=== PATIENT | male | born 1955 | race Caucasian/White ===

== ENCOUNTER 2017-11-15 12:10 | Inpatient (IN) | payer MEDICARE, OTHER ==
[~2017-11-15] VITALS: Ht 25.4 cm; Wt 93.0 kg
[~2017-11-15 12:10] MED LIST: ACIDOPHILUS1 EAC4 PO; AMBIEN 10 MG TA10 MG PO; AMLODIPINE BESY10 MG PO; ASPIR 8181 MG PO; ATORVASTATIN CA40 MG PO; CIPRO500 MG PO; HYDROCODON-ACE1 EACH PO; IRON325 PO; LIORESAL 10 MG10 MG INJECTION; LIPITOR20 MG PO; LISINOPRIL10 MG PO; METOCLOPRAMIDE10 MG PO; MSL20MG/ML PO; OMEPRAZOLE20 M2 PO; ONDANSETRON HCL4 M2 PO; PAXIL20 MG PO; POTASSIUM20 PO; VANCO1GM PO; VITAMIN B-1100 M1 PO; VITAMIN B-12500 MCG PO; WELLBUTRIN SR150 MG PO; ZOFRAN ODT4 MG PO
[2017-11-15 12:18] VITALS: BP 171/57
[2017-11-15 13:12] LABS: MCH 23.2 pg (26.0-34.0); MCHC 31.2 g/dL (28.0-37.0); MCV 74.3 fL (80.0-100.0); MPV 7.2 fl. (7.2-11.1); NUCLEATED RBCS 0 /100WBC; PLATELET COUNT* 354 thou/uL (150-400); RBC 4.31 mil/uL (4.50-6.00); RDW-CV 15.7 % (10.5-14.5); WBC 10.3 thou/uL (4.0-11.0)
[2017-11-15 13:19] LABS: CALCIUM 8.7 mg/dL (8.5-10.1); CREATININE 0.9 mg/dL (0.6-1.3)
[2017-11-15 13:20] LABS: POTASSIUM 2.9 mmol/L (3.5-5.1)
[2017-11-15 13:23] LABS: ALBUMIN 2.8 g/dL (3.4-5.0); TOTAL BILIRUBIN 0.2 mg/dL (<0.1-1.0); TOTAL PROTEIN 7.4 g/dL (6.4-8.2)
[2017-11-15 13:32] LABS: ABSOLUTE EOSINOPHILS 0.1 thou/uL (0.0-0.7); ABSOLUTE LYMPHOCYTES 0.6 thou/uL (0.8-5.3); ABSOLUTE MONOCYTES 0.5 thou/uL (0.0-1.2); ABSOLUTE NEUTROPHILS 9.1 thou/uL (1.6-8.1); ANISOCYTOSIS 1+; PLATELET ESTIMATE ADEQUATE; POIKILOCYTOSIS 1+
[2017-11-15 13:33] LABS: MICROCYTES 1+
--- NOTE | 2017-11-15 14:53 | NUR ---
PT RETURNED FROM CT BY CART AT THIS TIME.
--- NOTE | 2017-11-15 15:00 | NUR ---
SLIGHT BRUISING UNDER RT BREAST AREA. NO SWELLING. LUNG SOUNDS DIMINISHED IN RT MIDDLE AND LOWER LOBES. MORPHINE PAIN PUMP IN PLACE IN LT LOWER BACK.
[2017-11-15 15:43] LABS: TROPONIN-I LEVEL <0.06 ng/mL (<0.06)
[2017-11-15 16:17] LABS: URINE BILIRUBIN NEGATIVE (Negative); URINE BLOOD NEGATIVE (Negative); URINE CLARITY CLEAR; URINE COLOR YELLOW; URINE GLUCOSE-RANDOM NEGATIVE (Negative); URINE KETONES NEGATIVE (Negative); URINE LEUKOCYTES-REFLEX NEGATIVE (Negative); URINE NITRITE-REFLEX NEGATIVE (Negative); URINE PROTEIN NEGATIVE (Negative); URINE SPECIFIC GRAVITY 1.015 (1.005-1.030); URINE UROBILINOGEN 0.2 E.U./dl (0.2-1.0)
[2017-11-15 16:24] LABS: AMP/METHAMP Negative (Negative); BARBITURATES Negative (Negative); BENZODIAZEPINES POSITIVE (Negative); COCAINE Negative (Negative); METHADONE Negative (Negative); OPIATES POSITIVE (Negative); PCP Negative (Negative); THC Negative (Negative)
--- NOTE | 2017-11-15 16:37 | EKG ---
[place] [address] ELECTROCARDIOGRAM REPORT Name: GIANCARLO JACOBS Room: [place] [address] ADM IN .R.#: [id number] Admission: 11/15/17 Attend Phys: Reanna Mayen Discharge: Date of : 57 Report #: [id number] THIS REPORT FOR: //name// [facility] ED Test Date: 2017-11-15 Test Time: 12:55:58 Pat Name: GIANCARLO JACOBS Department: Room: [facility] Gender: M Credit Director: Jessi KAHN : 1955 Requested By: Sabra Oliver Order Number: [id number] MD: Israel Mascorro Measurements Intervals [place] Rate: 88 P: 31 IA: 142 QRS: -68 QRSD: 118 T: 25 QT: 393 QTc: 476 Interpretive Statements Sinus rhythm Supraventricular bigeminy Left anterior fascicular block Probable left ventricular hypertrophy Baseline wander in lead(s) V6 Compared to ECG 06/05/2017 08:13:56 Atrial premature complex(es) now present ST (T wave) deviation now present Sinus tachycardia no longer present Right bundle-branch block no longer present Electronically Signed On 11-15-2017 16:37:07 [employer] by Israel Mascorro [email or web address] <ELECTRONICALLY SIGNED> By: Israel Mascorro MD, FAC 11/15/17 1637 1255 1255 Israel Mascorro MD, [facility] /EPI
[2017-11-15 16:55] VITALS: BP 117/57
--- NOTE | 2017-11-15 17:05 | NUR ---
PT ARRIVED ON THE FLOOR FROM ER DEPT. REPORT TAKEN FROM AMINA CARNEY. PT ON CARDIAC MONITER TRACING ST WITH PVC HR 101. PT IS A&O. PT IS AFEBRILE. PT ON FALL PRECAUTIONS PER FACILITY PROTOCOL. HE IS ON 4L OF 02 WITH DIMINISHED L LOBES. PT IS COMFORTABLE IN BED AND EATING DINNER. NS AT 100 PER HOUR STARTED PER ORDERS.
[2017-11-15 17:15] VITALS: BP 161/63
[2017-11-15] MEDS ORDERED: PAXIL10 MG PO (17:35)
--- NOTE | 2017-11-15 18:32 | NUR ---
DR TIJERINA IN TO SEE PT TO ADDRESS PAIN AND EDEMA.
[2017-11-16] VITALS: BP 118/51
[2017-11-16 04:00] VITALS: BP 103/47
[2017-11-16 05:53] LABS: CALCIUM 8.2 mg/dL (8.5-10.1); CREATININE 0.7 mg/dL (0.6-1.3); MAGNESIUM 1.9 mg/dL (1.8-2.4); POTASSIUM 3.1 mmol/L (3.5-5.1)
--- NOTE | 2017-11-16 06:51 | NUR ---
A&O X4 CALM COOPERITIVE. FLUIDS AT 100ML. PT IS UP X1 ASSIST. K+ 3.1 PROTOCOL STARTED. RA. PT HAS RIGHT SIDE PAIN. GIVEN MEDICATION WITH PARTIAL RELIEF. SR ON THE MONITOR. VITALS WNL. FALL PRECAUTIONS IN PLACE. HOURLY ROUNDING FOR SAFETY.
[2017-11-16 07:20] VITALS: BP 108/34
--- NOTE | 2017-11-16 08:44 | NUR ---
RECEIVED PT CARE 0700. PT IS ALERT AND ORIENTED X4. VSS. COUNT ROOM CLERK TRACING SR. PATIENT DENIES ANY SOA. O2 SAT 95% ON ROOM AIR. C/O RIGHT SIDE RIB PAIN. RATES 7/10. PRN PAIN MEDICATION GIVEN WITH GOOD RELIEF. AM ASSESSMENT CHARTED. MEDS PER MAR. PT UP STANDBY ASSIST IN ROOM WITH BATHROOM PRIVILEDGES. GAIT IS STEADY. IVF INFUSING. PATIENT UP IN THE CHAIR FOR BREAKFAST. CALL LIGHT WITHIN REACH AND REMINDED PATIENT TO CALL OUT FOR NEEDS/WANTS.
[2017-11-16 08:56] LABS: HEMATOCRIT 28.1 % (42.0-52.0); MCH 23.3 pg (26.0-34.0); MCHC 32.1 g/dL (28.0-37.0); MCV 72.6 fL (80.0-100.0); RBC 3.87 mil/uL (4.50-6.00); RDW-CV 15.8 % (10.5-14.5); WBC 7.7 thou/uL (4.0-11.0)
[2017-11-16 11:47] VITALS: BP 97/44
[2017-11-16 12:02] LABS: % SATURATION 6 % (20-39); IRON 20 ug/dL (50-175)
--- NOTE | 2017-11-16 14:09 | 2DMMODE ---
[place] [address] 2 D/M-MODE ECHOCARDIOGRAM Name: GIANCARLO JACOBS Room: [address] IN [facility]#: [id number] Admission: 11/15/17 Attend Phys: Malina Maciel Discharge: Date of : 57 Date of Service: 11/16/17 1409 Report #: [id number] THIS REPORT FOR: //name// APPROVED REPORT Study performed: 11/16/2017 09:27:06 EXAM: Comprehensive 2D, Doppler, and color-flow Echocardiogram Patient Location: In-Patient Room #: [facility] Status: routine BSA: 2.13 HR: 83 bpm BP: 108/34 mmHg Rhythm: NSR Other Information Study Quality: Good Indications Dyspnea rib fractures 2D Dimensions LVEF(%): 77.13 (>50%) IVSd: 13.36 (7-11mm) LVOT Diam: 23.58 (18-24mm) LVDd: 50.47 mm PWd: 11.87 (7-11mm) Ascending Ao: 31.70 (22-36mm) LVDs: 27.25 (25-40mm) Aortic Root: 34.49 mm Heath's LVEF: 77.13 % Volumes Left Atrial Volume (Systole) LA ESV Index: 37.30 mL/m2 Aortic Valve AoV Peak Pierce.: 1.88 m/s AO Peak Gr.: 14.17 mmHg LVOT Max P.10 mmHg AO Mean Gr.: 8.41 mmHg LVOT Mean P.54 mmHg LVOT Max V: 1.13 m/s AO V2 VTI: 33.51 cm LVOT Mean V: 0.73 m/s DELMY (VTI): 3.15 cm2 LVOT V1 VTI: 24.17 [place] [address] 2 D/M-MODE ECHOCARDIOGRAM Name: GIANCARLO JACOBS Room: [address] IN .R.#: [id number] Admission: 11/15/17 Attend Phys: Malina Maciel Discharge: Date of : 57 Date of Service: 11/16/17 1409 Report #: [id number] E/A Ratio: 1.20 MV Decel. Time: 192.69 ms MV E Max Pierce.: 0.80 m/s MV PHT: 55.88 ms MVA (PHT): 3.94 cm2 TDI E/Lateral E': 6.15 E/Medial E': 7.27 Medial E' Pierce.: 0.11 m/s Lateral E' Pierce.: 0.13 m/s Pulmonary Valve PV Peak Pierce.: 1.13 m/s PV Peak Gr.: 5.14 mmHg Tricuspid Valve TR Peak Gr.: 31.06 mmHg RVSP: 36.00 mmHg Left Ventricle The left ventricle is normal size. There is normal LV segmental wall motion. Mild concentric left ventricular hypertrophy.. Left ventricular systolic function is normal. The left ventricular ejection fraction is within the normal range. LVEF is 60-65%. The left ventricular diastolic function is normal. Right Ventricle The right ventricle is normal size. The right ventricular systolic function is normal. Atria Left atrium is mildly dilated. The right atrium size is normal. Aortic Valve Mild aortic valve sclerosis. No aortic regurgitation is present. There is no aortic valvular stenosis. Mitral Valve The mitral valve is normal in structure. Trace mitral regurgitation. No evidence of mitral valve stenosis. Tricuspid Valve The tricuspid valve is normal in structure. Trace tricuspid regurgitation. The RVSP is 35-40 mmHg. Pulmonic Valve The pulmonary valve is normal in structure. [place] [address] 2 D/M-MODE ECHOCARDIOGRAM Name: GIANCARLO JACOBS Room: [address] IN [facility]#: [id number] Admission: 11/15/17 Attend Phys: Malina Maciel Discharge: Date of : 57 Date of Service: 11/16/17 1409 Report #: [id number] valvular regurgitation. Great Vessels The aortic root is normal in size. IVC is normal in size and collapses with >50% inspiration Pericardium There is no pericardial effusion. <Conclusion> LVEF is 60-65%. Mild concentric left ventricular hypertrophy.. Left atrium is mildly dilated. <ELECTRONICALLY SIGNED> By: Gurpreet Brody MD, FACC 11/16/17 1409 140 140 Gurpreet Brody MD, FACC /INF
[2017-11-16 16:01] VITALS: BP 110/49
--- NOTE | 2017-11-16 18:10 | NUR ---
PT PROGRESSING TOWARDS GOALS. PAIN CONTROLLED WITH PRN PAIN MEDICATIONS. HE IS TOLERATED HIS DIET WELL WITHOUT NAUSEA OR VOMITING. UP STANDBY ASSIST IN ROOM. GAIT STEADY. VOIDING PER URINAL AND AMBULATING TO RESTROOM. IV SALINE LOCKED. PATIENT ANXIOUS TO DC HOME. HE WAS UPDATED ON PLAN OF CARE AND TEST RESULTS. BED ALARM ON. HOURLY ROUNDING CHARTED. CALL LIGHT WITHIN REACH. WILL CONTINUE TO MONITOR.
[2017-11-16 18:11] LABS: IgA 201 mg/dL (61-437); IgG 815 mg/dL (700-1600); IgM 123 mg/dL (20-172)
[2017-11-16 20:08] VITALS: BP 121/54
[2017-11-17 00:03] VITALS: BP 118/61
[2017-11-17 04:18] VITALS: BP 110/48
--- NOTE | 2017-11-17 05:34 | NUR ---
PT IS ABLE TO COMMUNICATE HIS NEEDS TO STAFF EFFECTIVELY. CURRENT PAIN MEDICATION REGIMEN HAS BEEN ADEQUATE FOR CONTROLLING HIS PAIN UP TO THIS TIME. POSSIBLE DISCHARGE LATER TODAY.
--- NOTE | 2017-11-17 08:00 | NUR ---
PT RESSYING IN BED, APPEARS ALERT O X 4, DENIES CHEST PAIN, SOB, C/O r CHEST SORENESS/RIB PAIN. STATES ADEQ PAIN CONTROL AT THIS TIME,. RATES PAIN 2-3 ON SCALE OF 1-10
[2017-11-17 08:40] VITALS: BP 117/59
[2017-11-17 12:00] VITALS: BP 127/53
--- NOTE | 2017-11-17 15:25 | NUR ---
CM SPOKE TO THE PATIENT TO DISCUSS HOME SITUATION, DISCHARGE PLANNING, AND TO INFORM OF THE ROLE OF CM. PATIENT ALERT AND ORIENTED. PATIENT RESIDES AT HOME WITH SPOUSE AND SON. PATIENT USES 0 DME. PATIENT HAS NO HX OF SNF. PATIENT HAS A HX OF HH WITH [facility], AND IS OPEN TO HH AT D/C. PATIENT PLANS TO RETURN HOME AT D/C. PATIENT REQUEST A WALKER AT D/C. CM WILL REMAIN AVAILABLE TO ASSIST AND FOLLOW NEEDED.
[2017-11-17 16:00] VITALS: BP 145/57
--- NOTE | 2017-11-17 18:21 | NUR ---
pt progressing towards goals, remains o x 4, forgetful, has been up tp batroom with standby assist, particiaoted with physical theapy. No reports or c/o feeling orthostatic. Had pt count to 30 with each change of position when getting up. Seeme dto do well ..........fair appetite. C/O r rib pain, Taking hydrocodome q-3-4 hour. Spoke to spouse today. She expressed concers anout poor memory. Staes fanily consideribf placing in in assisted living secondary to his forgetfullness
[2017-11-17 20:57] VITALS: BP 129/52
[2017-11-18 00:02] VITALS: BP 133/64
[2017-11-18 04:10] VITALS: BP 138/62
--- NOTE | 2017-11-18 07:51 | NUR ---
PT IS ABLE TO COMMUNICATE HIS NEEDS TO STAFF EFFECTIVELY. CURRENT PAIN MEDICATION REGIMEN HAS BEEN ADEQUATE FOR CONTROLLING HIS PAIN UP TO THIS TIME. PT TO HAVE COSYNTROPIN STIMULATION LAB TEST LATER TODAY. POSSIBLE DISCHARGE TODAY OR TOMORROW.
[2017-11-18 12:00] VITALS: BP 125/53
[2017-11-18 16:00] VITALS: BP 121/62
--- NOTE | 2017-11-18 17:54 | NUR ---
PATIENT RESTING IN BED. UP IN ROOM AD VILLA AND IN NO APPARENT DISTRESS AT THIS TIME. RICKIE HAS IMPLANTED PAIN PUMP AND RECEIVES PO MEDICATION Q3H TO MAINTIN RIB PAIN AT LESS THAN 4 ON 0-10 PAIN SCALE. VITAL SIGNS STABLE. SINUS RHYTHM ON MONITOR. HOULRY ROUNDING COMPLETED FOR PATIENT SAFETY.
[2017-11-18 20:57] VITALS: BP 118/60
[2017-11-18 23:50] VITALS: BP 111/61
[2017-11-19 04:00] VITALS: BP 116/56
[2017-11-19 09:09] LABS: CORTISOL 30 MIN 16.7 ug/dL (Not Estab.); CORTISOL 60 MIN 18.2 ug/dL (Not Estab.); CORTISOL BASELINE 7.4 ug/dL (())
--- NOTE | 2017-11-19 10:11 | NUR ---
ORDER RECEIVED FOR "OT EVALUATION AND TREATMENT". READ CHART AND SPOKE WITH RN AND PATIENT. PT STATING THAT HE TOOK A SHOWER I THIS AM AND IS UP AD VILLA. PT WITH NO NEED FOR SKILLED OT SERVICES AT THIS TIME AND WILL D/C FROM [facility].
--- NOTE | 2017-11-19 11:18 | NUR ---
Pt now declining wanting a walker for home, states that his has one that he plans to use.
[2017-11-19 11:37] VITALS: BP 131/60
[2017-11-19 13:08] LABS: ANA INTERPRETATION Negative (Negative)
--- NOTE | 2017-11-19 14:39 | NUR ---
ORDER RECEIVED FOR "OT EVAL AND TREAT" AND SEEN THIS DATE AT 1011. OT HAD REVIEWED CHART, AND SPOKEN WITH RN AND PATIENT. BOTH RN AND PATIENT STATING THAT HE HAD TAKEN A SHOWER INDEPENDENTLY AND DID NOT SEE NEED FOR OCCUPATIONAL THERAPY. SECOND ORDER RECEIVED AT 1349 ON THIS DATE. PLAN TO DEFER TO PHYSICAL THERAPY AT THIS TIME.
[2017-11-19 15:53] VITALS: BP 135/72
[2017-11-19] MEDS ORDERED: LEVAQUIN 750 M750 MG PO (16:03)
[2017-11-19] MEDS ORDERED: CORTEF 20 MG TA20 M1 PO (16:04)
[2017-11-19] MEDS ORDERED: LIDOPATCH1 EACH TOP (16:05)
[2017-11-19] MEDS ORDERED: ZOFRAN ODT4 MG PO (16:08)
[2017-11-19 16:46] VITALS: BP 135/72
[2017-11-19 16:59] VITALS: BP 135/72
== END 2017-11-19 18:00 | disposition home or self-care (01) | DRG 183 ==
LOC: M.ERS 12:10 → M.TBA-ER 16:08 → M.2W 16:08
PROVIDERS: Internal Medicine; Nurse Practitioner Family; ADMIT Internal Medicine
DX: S22.41XA Multiple fractures of ribs, right side, initial encounter for closed fracture (principal); J15.9 Unspecified bacterial pneumonia; J96.01 Acute respiratory failure with hypoxia; I48.91 Unspecified atrial fibrillation; G89.29 Other chronic pain; M54.9 Dorsalgia, unspecified; K59.09 Other constipation; E87.6 Hypokalemia; W18.39XA Other fall on same level, initial encounter; Y93.89 Activity, other specified; Y92.89 Other specified places as the place of occurrence of the external cause; Y99.8 Other external cause status

== ENCOUNTER 2017-12-14 02:56 | Inpatient (IN) | payer MEDICARE, OTHER ==
[~2017-12-14] VITALS: Ht 177.8 cm; Wt 98.9 kg
[2017-12-14] VITALS (7 sets, daily range): BP systolic 105–148; BP diastolic 46–79
[~2017-12-14 02:56] MED LIST changes: +CORTEF 20 MG TA20 M1 PO; +LEVAQUIN 750 M750 MG PO; +LIDOPATCH1 EACH TOP; +PAXIL10 MG PO
[2017-12-14 03:15] LABS: ABSOLUTE EOSINOPHILS 0.3 thou/uL (0.0-0.7); ABSOLUTE LYMPHOCYTES 1.5 thou/uL (0.8-5.3); ABSOLUTE MONOCYTES 0.7 thou/uL (0.0-1.2); ABSOLUTE NEUTROPHILS 4.9 thou/uL (1.6-8.1); BASOPHILS 0.5 %; EOSINOPHILS 3.9 %; HEMATOCRIT 33.5 % (42.0-52.0); HEMOGLOBIN 10.7 gm/dL (14.0-18.0); LYMPHOCYTES 19.6 %; MCH 25.2 pg (26.0-34.0); MCV 78.6 fL (80.0-100.0); MPV 8.5 fl. (7.2-11.1); NUCLEATED RBCS 0 /100WBC; PLATELET COUNT* 203 thou/uL (150-400); RBC 4.26 mil/uL (4.50-6.00); RDW-CV 21.2 % (10.5-14.5); WBC 7.4 thou/uL (4.0-11.0)
[2017-12-14 03:24] LABS: ANION GAP 5 mmol/L (7-16); BUN 35 mg/dL (7-18); CALCIUM 8.7 mg/dL (8.5-10.1); CHLORIDE 105 mmol/L (98-107); CO2 31 mmol/L (21-32); GLUCOSE 118 mg/dL (70-99); POTASSIUM 3.4 mmol/L (3.5-5.1); SODIUM 141 mmol/L (136-145)
[2017-12-14 03:28] LABS: PROTIME 9.7 Seconds (9.20-11.50)
[2017-12-14 03:36] LABS: ALBUMIN 3.4 g/dL (3.4-5.0); ALKALINE PHOSPHATASE 98 U/L (46-116); NT-PRO BRAIN NAT PEPTIDE 223 pg/mL (<300); SGOT 16 U/L (15-37); SGPT 21 U/L (30-65); TOTAL BILIRUBIN 0.2 mg/dL (<0.1-1.0); TOTAL PROTEIN 6.7 g/dL (6.4-8.2); TROPONIN-I LEVEL <0.06 ng/mL (<0.06)
[2017-12-14 04:41] LABS: URINE BILIRUBIN NEGATIVE (Negative); URINE BLOOD NEGATIVE (Negative); URINE CLARITY CLEAR; URINE COLOR YELLOW; URINE GLUCOSE-RANDOM NEGATIVE (Negative); URINE KETONES NEGATIVE (Negative); URINE LEUKOCYTES-REFLEX NEGATIVE (Negative); URINE NITRITE-REFLEX NEGATIVE (Negative); URINE PROTEIN NEGATIVE (Negative); URINE SPECIFIC GRAVITY 1.025 (1.005-1.030); URINE UROBILINOGEN 0.2 E.U./dl (0.2-1.0)
[2017-12-14 04:53] LABS: AMP/METHAMP Negative (Negative); BARBITURATES Negative (Negative); BENZODIAZEPINES Negative (Negative); COCAINE Negative (Negative); METHADONE Negative (Negative); OPIATES POSITIVE (Negative); PCP Negative (Negative); THC Negative (Negative)
[2017-12-14 06:58] LABS: ANISOCYTOSIS 2+; PLATELET ESTIMATE ADEQUATE
--- NOTE | 2017-12-14 11:43 | EKG ---
[place] [address] ELECTROCARDIOGRAM REPORT Name: GIANCARLO JACOBS Room: [place] [address] ADM IN .R.#: [id number] Admission: 12/14/17 Attend Phys: Kalyan Bowles MD Discharge: Date of : 57 Report #: [id number] THIS REPORT FOR: //name// [facility] ED Test Date: 2017-12-14 Test Time: 03:00:05 Pat Name: GIANCARLO ARLENE Department: Room: [facility] Gender: M Reservations Agent: SLIM Bowen : 1955 Requested By: Tammy Jauregui Order Number: [id number] MD: Gurpreet Brody Measurements Intervals [place] Rate: 86 P: 46 KS: 136 QRS: -50 QRSD: 117 T: 33 QT: 367 QTc: 439 Interpretive Statements Sinus rhythm RBBB and LAFB Compared to ECG 11/15/2017 12:55:58 Incomplete right bundle-branch block now present Right bundle-branch block now present Atrial premature complex(es) no longer present Electronically Signed On 12-14-2017 11:43:09 CDT by Gurpreet Brody [email or web address] <ELECTRONICALLY SIGNED> By: Gurpreet Brody MD, [facility] 12/14/17 1143 0300 0300 Gurpreet Brody MD, [facility] /EPI
[2017-12-14 12:27] LABS: CREATININE 0.8 mg/dL (0.6-1.3); POTASSIUM 3.8 mmol/L (3.5-5.1)
[2017-12-15] VITALS (9 sets, daily range): BP systolic 132–162; BP diastolic 53–79
[2017-12-15 05:49] LABS: HEMOGLOBIN 10.8 gm/dL (14.0-18.0); MCHC 31.7 g/dL (28.0-37.0); MCV 78.8 fL (80.0-100.0); MPV 8.6 fl. (7.2-11.1); RBC 4.31 mil/uL (4.50-6.00); RDW-CV 21.8 % (10.5-14.5); WBC 5.1 thou/uL (4.0-11.0)
[2017-12-15 05:53] LABS: CALCIUM 8.3 mg/dL (8.5-10.1); CREATININE 0.6 mg/dL (0.6-1.3)
[2017-12-15 06:34] LABS: POTASSIUM 3.9 mmol/L (3.5-5.1)
--- NOTE | 2017-12-15 13:18 | CON ---
[address] [address] CONSULTATION Name: GIANCARLO JACOBS Room: [place] [address] ADM IN M.Kailey.#: [id number] Admission: 12/14/17 Attend Phys: Kalyan Bowles MD Discharge: Date of : 57 Report #: [id number] THIS REPORT FOR: //name// CC: Kalyan Quinones Patient's Chart DATE OF SERVICE: 12/14/2017 HISTORY OF PRESENT ILLNESS: The patient is a 62-year-old white male who I was asked to see in the hospital today after he had a syncopal spell. The patient has had multiple hospitalizations here at [facility]. He actually saw my partner, Dr. German Huang back in 2007. He had a previous history of atrial fibrillation with previous cardioversion. He then presented with atrial fibrillation. The patient was cardioverted to sinus rhythm. The patient has some memory loss. He has also had a long history of lightheaded spells and syncope. He actually underwent an EEG in 2014 that showed no seizure activity. The patient has a history of chronic back pain with multiple surgeries. He has a stimulator in place, also has a morphine pump in place. He was admitted here in 2015 after he fell and was confused. He has a history of opioid abuse. He was diagnosed with vasovagal syncope at that time. He was admitted here in May 2017 when he came in intoxicated. He was found lying on the floor. He was discharged. He did have evidence of subarachnoid hemorrhage at that time. The patient was just admitted to [facility] last month after he fell in the bathroom. The patient apparently yesterday was in the kitchen, sitting in a chair. He then fell to the ground. The son found him on the ground. There was no seizure activity. He denied any incontinence. Denied any palpitations or chest pain. He was brought to the hospital and admitted for further evaluation and treatment. PAST MEDICAL HISTORY: Otherwise significant for prostate cancer. He has a history of hypertension and hyperlipidemia. MEDICATIONS: Consists of amlodipine, Lipitor, Paxil. ALLERGIES: He has no known drug allergies. FAMILY HISTORY: Negative for heart disease. SOCIAL HISTORY: He is , lives here in [place]. He is on disability due to chronic back pain. He used to sell medical equipment. No smoking. Has a history of alcohol abuse. REVIEW OF SYSTEMS: He has had no history of stroke, seizure, asthma, peptic ulcer disease, liver disease, has history of prostate cancer, [place] [address] CONSULTATION Name: GIANCARLO JACOBS Volodymyr Room: [address] IN [facility]#: [id number] Admission: 12/14/17 Attend Phys: Kalyan Bowles MD Discharge: Date of : 57 Report #: [id number] PHYSICAL EXAMINATION: GENERAL: Revealed a middle-aged male lying in bed, he appeared in no distress. VITAL SIGNS: Blood pressure 130/70, pulse 70. HEENT: He is anicteric. Conjunctivae pink. Mucous membranes moist. NECK: Veins nondistended. No carotid bruits. Neck supple. CHEST: Clear to auscultation. CARDIOVASCULAR: Regular rate and rhythm without murmur. ABDOMEN: Soft, nontender. EXTREMITIES: Had trace edema. Dorsalis pedis pulse could not be palpated. SKIN: Cool and dry. NEUROLOGIC: Nonfocal. LABORATORY DATA: His ECG showed sinus rhythm, left anterior fascicular block and a right bundle branch block. IMPRESSION AND RECOMMENDATIONS: 1. Syncopal spell. Reason unclear. No significant arrhythmia noted. The patient has a long history of alcohol abuse, narcotic abuse and chronic back pain. Recommend no further cardiac workup at this time. 2. History of atrial fibrillation. No clinical recurrences after cardioversion in 2007. 3. Hypertension. The patient has been on calcium jerson. 4. Hyperlipidemia. The patient is on a statin drug. 5. History of prostate cancer. <ELECTRONICALLY SIGNED> By: Gurpreet Brody MD, [facility] 12/15/17 1318 1552 1927Dajad Brody MD, FACC /nt
[2017-12-16] VITALS: BP 158/72
[2017-12-16 04:00] VITALS: BP 143/70
[2017-12-16 08:00] VITALS: BP 163/74
[2017-12-16 12:25] VITALS: BP 161/72
[2017-12-16] MEDS ORDERED: MIRALAX17 G1 PO (15:17)
[2017-12-16] MEDS ORDERED: FLOMAX0.4 MG PO (15:18)
[2017-12-16 15:19] VITALS: BP 161/72
[2017-12-16 17:28] LABS: URINE BLOOD NEGATIVE (Negative); URINE CLARITY CLEAR; URINE COLOR ORANGE; URINE GLUCOSE-RANDOM NEGATIVE (Negative); URINE KETONES 1+ (Negative); URINE LEUKOCYTES-REFLEX NEGATIVE (Negative); URINE PROTEIN 1+ (Negative); URINE SPECIFIC GRAVITY 1.015 (1.005-1.030)
[2017-12-16 17:32] LABS: ICTOTEST (BILI CONFIRMATORY) Negative (Negative); URINE BILIRUBIN NEGATIVE (Negative); URINE NITRITE-REFLEX POSITIVE (Negative); URINE REDUCING SUBSTANCE NEGATIVE (Negative)
[2017-12-16 17:38] LABS: BACTERIA-REFLEX None Seen /HPF (None Seen); CASTS None Seen /LPF (None Seen); CRYSTALS None Seen /LPF (None Seen); MUCUS 4-6 Moderate strn/LPF (None Seen); SQUAMOUS 0-3 Few /LPF (0-3); URINE RBC 0-2 Rare /HPF (0-2); URINE WBC-REFLEX 0-5 Rare /HPF (0-5)
--- NOTE | 2017-12-25 17:26 | CON ---
[address] [address] CONSULTATION Name: ARLENEGIANCARLO W Room: [address] IN M.R.#: [id number] Admission: 12/14/17 Attend Phys: Kalyan Bowles MD Discharge: 12/16/17 Date of : 57 Report #: [id number] THIS REPORT FOR: //name// CC: Kalyan Quinones DATE OF SERVICE: 12/14/2017 HISTORY OF PRESENT ILLNESS: This is a 62-year-old male patient who was evaluated by me to determine any neurological etiology for the patient's dizziness. The history he provides is somewhat different than the one is in the computer. It would like that the patient was found passed out on the floor by the son according to the records, but the patient says that he was feeling dizzy when he tried to get up carefully. He did not think he passed out. He does have hypertension. He indicates he does not have a blood pressure cuff at home, so he does not know all his blood pressure runs. He had no trauma associated with this. He does not know what brought it on. Review of systems indicates that he had these episodes in the past. He has a pretty significant spine problems. He is disabled because of the spine problem. He had numerous other problems in the past, which include altered mental status, pneumonia, chest pain, back pain, Clostridium difficile colitis, hypokalemia, nausea and vomiting. He has a pain pump. There is some question of subarachnoid hemorrhage in the chart, but the patient does not give a very good history in that regard. REVIEW OF SYSTEMS: His 14-point review of system was carried out and this was his relevant 14-point review of system. He also indicates that he does have a history of sleep apnea and he does have a history of drinking alcohol heavily. He does have some history of depression. Presently, he is not complaining of any new eye, ENT, cardiac, respiratory, , constitutional, dermatological, hematological, throat, allergic symptom associated with present symptomatology. PAST MEDICAL HISTORY: Negative for strokes according to him. FAMILY HISTORY: Negative for early age strokes. SOCIAL HISTORY: He says he does not smoke any cigarettes. PHYSICAL EXAMINATION: Indicates he is alert. He is responsive. His speech looks unremarkable, but his memory and fund of knowledge looks diminished. I do not know what his baseline is. He knows what month it is. His cranial nerve examination 2-12 looks unremarkable. His strength, sensation, reflexes look symmetrical. His tone is symmetrical. He does not appear to have any cerebellar sign. His pupils are somewhat dilated. He does not have any papilledema. There is no meningeal sign. There is no carotid [place] [address] CONSULTATION Name: GIANCARLO JACOBS Room: [address] IN ..#: [id number] Admission: 12/14/17 Attend Phys: Kalyan Bowles MD Discharge: 12/16/17 Date of : 57 Report #: [id number] He is a reasonably well-developed individual who does not have any dysmorphic features of eyes, ears and face. His vision and hearing looks adequate. His pulses are difficult to feel, but he has no edema, cyanosis or jaundice. His cardiac examination mostly looks unremarkable. He does not appear to have much respiratory difficulty. He may have some rhonchi on either side. Blood pressure is 135/67, respirations 16, pulse is 81, and temperature is 99. His blood pressure has fluctuated and it has gone low. LABORATORY DATA: His white count is 7.4 and his GFR is 98. IMPRESSION: I suspect that the most likely etiology for his symptom is non-neurological. It may be fluctuating blood pressure, but it may also be any other cardiac or any systemic causes. Neurological cause is unlikely, but with all this history, I think it may be desirable to exclude that. He has a morphine pump, which is not compatible with MRI. We can do an ultrasound or CT angio. CT angio may be better test because it will exclude posterior fossa vascular abnormality with more certainty. It does have its own potential complications. I will prefer that. RECOMMENDATION: I had a long talk with the patient and I discussed all of it with the patient in detail. We will proceed with a CT angio as well as EEG and if that is negative, then I do not think further neurological workup will be indicated. All of it was discussed with the patient in detail and pros and cons of all these approaches were discussed and he wants to follow this plan. Thank you very much for this referral. <ELECTRONICALLY SIGNED> By: Fahad Zhong MD 12/25/17 1726 1316 1445Fahad Zhong MD /efrem
== END 2017-12-16 17:45 | disposition home or self-care (01) | DRG 74 ==
LOC: M.ERS 02:56 → M.TBA-ER 05:07 → M.2W 05:07
PROVIDERS: Emergency Medicine; Family Medicine; Internal Medicine; ADMIT Internal Medicine
DX: G90.8 Other disorders of autonomic nervous system (principal); I48.91 Unspecified atrial fibrillation; G89.29 Other chronic pain; M54.9 Dorsalgia, unspecified; F10.21 Alcohol dependence, in remission; I10 Essential (primary) hypertension; E78.5 Hyperlipidemia, unspecified; K59.09 Other constipation; E87.6 Hypokalemia; G47.33 Obstructive sleep apnea (adult) (pediatric); I11.9 Hypertensive heart disease without heart failure; Z90.79 Acquired absence of other genital organ(s); Z79.899 Other long term (current) drug therapy; Z85.46 Personal history of malignant neoplasm of prostate; Z79.891 Long term (current) use of opiate analgesic

== ENCOUNTER → 2018-07-31 | Outpatient (CLI) | payer MEDICARE, OTHER ==
[~2018-07-31] MED LIST changes: +FLOMAX0.4 MG PO; +MIRALAX17 G1 PO
[2018-07-31 11:02] VITALS: BP 110/50
[2018-07-31 11:14] VITALS: BP 114/59
[2018-07-31 11:34] VITALS: BP 100/45
[2018-07-31 11:51] VITALS: BP 102/57
== END | disposition home or self-care (01) ==
LOC: M.RAD 07-05 09:00 → M.CT 07-05 11:30 → M.RAD 08:26
DX: M48.061 Spinal stenosis, lumbar region without neurogenic claudication (principal); M54.16 Radiculopathy, lumbar region; M54.12 Radiculopathy, cervical region; M25.78 Osteophyte, vertebrae; M99.73 Connective tissue and disc stenosis of intervertebral foramina of lumbar region; M43.16 Spondylolisthesis, lumbar region; G89.29 Other chronic pain; Z98.1 Arthrodesis status; Z79.899 Other long term (current) drug therapy